=== PATIENT | male | born 1985 | race Native Hawaiian/Other Pacific Islander ===

== ENCOUNTER 2021-03-13 15:54 | Emergency (ER) | payer OTHER, MEDICAID, SELFPAY ==
--- NOTE | 2021-03-13 13:29 | DI.RAD.S_ITS ---
PROCEDURE: XR FINGER RT MIN 2V INDICATIONS: thumb vs table saw TECHNIQUE: AP hand, 2 views of the 1st finger(s) acquired. COMPARISON: None. FINDINGS: Bones: Acute oblique fracture through 1st distal phalangeal tuft is seen with minimal volar and distal displacement at fracture site. No suspicious bony lesions. Soft tissues: Laceration involving tip of the right thumb is seen. Small radiodensities within tip of right thumb soft tissue are seen, which may represent tiny foreign bodies. IMPRESSION: Oblique fracture through 1st distal phalangeal tuft. Laceration involving tip of right thumb with suggestion of tiny foreign bodies within soft tissue. Dictated by: Aditya Martines M.D. on 03/13/2021 at 13:52 Approved by: Aditya Martines M.D. on 03/13/2021 at 14:10
--- NOTE | 2021-03-13 19:15 | ED_ITS ---
HPI - Extremity Injury (Upper) General Chief Complaint: Wound/Laceration Stated Complaint: RT THUMB INJURY History of Present Illness HPI narrative: Discharge is created we has there was in EMR error and name probablem patient was seen and evaluated at 13:23 p.m. Patient is a 35-year-old male presents with right thumb injury.? He injured it 45 minutes prior to her arrival with a table saw.? He has no numbness or tingling.? He is not on any anti-platelet or anticoagulation medication.? He still has full range motion.? Right hand dominant.? Injury happened at home. Related Data Previous Rx's Medication Instructions Recorded cyclobenzaprine 10 mg tablet 10 mg PO BID #20 tab 09/12/19 Allergies Allergy/AdvReac Type Severity Reaction Status Date / Time No Known Drug Allergies Allergy Verified 09/12/19 09:40 Review of Systems Review of Systems Narrative: Narrative: GENERAL: Denies chills,fever HEENT: Denies throat pain RESPIRATORY: Denies dyspnea, cough, wheezing CARDIOVASCULAR: Denies chest pain, palpitations GASTROINTESTINAL: Denies nausea, vomiting MUSCULOSKELETAL: Denies extremity pain, injury SKIN:? See HPI NEUROLOGIC: Denies weakness, dizziness, headache, numbness 8 point review of systems is negative except for those stated above and HPI Patient History Medical History (Updated 03/13/21 @ 16:11 by Pamela Prado RN) Sciatica Exam Initial Vital Signs Initial Vital Signs: Temperature ?98.3 F ?03/13/21 13:15 Pulse Rate ?93 H ?03/13/21 13:15 Respiratory Rate ?22 ?03/13/21 13:15 Blood Pressure ?174/83 H ?03/13/21 13:15 Pulse Oximetry ?98 ?03/13/21 13:15 GENERAL: Well-appearing, well-nourished and in no acute distress. CARDIOVASCULAR: peripheral pulses in tact, cap refill <2 sec RESPIRATORY: No respiratory distress,? speaks in full sentences without difficulty [ABDOMEN: Soft, nontender, no guarding or rebound] EXTREMITIES: Normal range of motion, no clubbing or edema.? Neurovascularly intact NEUROLOGICAL: Cranial nerves II through XII grossly intact.? Normal gait and speech. SKIN:? Right thumb laceration across distal palmar side is no nail bed involvement actually 4cm jagged laceration Procedures Laceration Repair Laceration 1: Site: hand (thumb) Size (cm): 4 Description: stellate and irregular Local Anesthetic: lidocaine 1% (2) Pre-repair: wound explored, irrigated extensively, deep structures intact and extensive debridement Skin layer closed with: nylon Size (cm): 4-0 Number of sutures: 3 Course Orders Ordered: 03/13/21 13:28 XR finger RT min 2V Stat Discontinued Medications Lidocaine HCl (Lidocaine 1% (Pf))? 4 ml SUBCUT NOW ONE ??? Stop: 03/13/21 13:35 ??? Last Admin: 03/13/21 13:39? Dose: 4 ml ??? Documented by: WILLIAMS Vital Signs Vital signs: ? 03/13/21 13:15 Temperature 98.3 F Pulse Rate 93 H Respiratory Rate 22 Blood Pressure 174/83 H Pulse Oximetry 98 [facility] [place] - Extremity Injury (Upper) Imaging Data Extremity x-ray #1: Radiologist's Impression: PROCEDURE:? XR FINGER RT MIN 2V ? INDICATIONS:? thumb vs table saw ? TECHNIQUE:? AP hand, 2 views of the 1st finger(s) acquired.? ? COMPARISON:? None. ? FINDINGS:? ? Bones:? Acute oblique fracture through 1st distal phalangeal tuft is seen with minimal volar and distal displacement at fracture site.? No suspicious bony lesions.? ? Soft tissues:? Laceration involving tip of the right thumb is seen.? Small radiodensities within tip of right thumb soft tissue are seen, which may represent tiny foreign bodies. ? IMPRESSION:? Oblique fracture through 1st distal phalangeal tuft.? Laceration involving tip of right thumb with suggestion of tiny foreign bodies within soft tissue. ? ? Dictated by: Aditya Martines M.D. on 03/13/2021 at 13:52 ? ? Approved by: Aditya Martines M.D. on 03/13/2021 at 14:10 ? [facility] Narrative Medical decision making narrative: Patient had no real good way to suture. However deep structures appear to be intact. He has a tuft fracture on distal thumb. He is placed in a splint given a good dressing and recommended he follow-up with orthopedics. Orthopedics agreed with this plan. He was started on antibiotics, Keflex and given pain medications, Rachel Humphrey consultation. Again this patient was unfortunately put under overall patient name initially this is correct name and patient Discharge Plan Departure Patient Disposition: Home Clinical Impression: Laceration Instructions: DI for Laceration Repair Prescriptions: No Action cyclobenzaprine 10 mg tablet 10 mg PO BID Qty: 20 RF: 0
== END 2021-03-13 16:11 | disposition home or self-care (01) ==
PROVIDERS: Emergency Provider Emergency Medicine
DX: S61.011A Laceration without foreign body of right thumb without damage to nail, initial encounter (principal); W27.0XXA Contact with workbench tool, initial encounter
CPT/HCPCS: 12002; 73140; 99283

== ENCOUNTER 2025-01-08 09:38 | Observation (INO) | payer OTHER, SELFPAY ==
[2025-01-08] VITALS (17 sets, daily range): BP systolic 115–173; BP diastolic 59–95; PULSE 83–113; RESP 12–23; TEMP 36.4–36.8; O2SAT 96–100; BMI 51.7; BMI 54.8
[2025-01-08 10:42] LABS: INR 1.2 (0.9-1.3); Prothrombin Time 14.0 SECONDS (9.4-12.5)
[2025-01-08 10:43] LABS: Add Manual Diff / Slide Review NO; Hematocrit 29.8 % (41-53); Hemoglobin 10.1 g/dL (13.5-17.5); Lymphocytes Absolute Auto 2700 /uL (1100-4500); Mean Corpuscular HGB Conc 34.0 % (30-36); Mean Corpuscular Hemoglobin 27.5 PG (26-34); Mean Corpuscular Volume 80.8 fL (80-100); Platelet Count 281 X10^3/uL (150-400)
[2025-01-08 10:45] LABS: PTT Partial Thromboplastin Tim 25 SECONDS (25.1-36.5)
[2025-01-08 10:51] LABS: Alanine Aminotransferase 65 IU/L (<50); Albumin 4.1 g/dL (3.5-5.0); Albumin Globulin Ratio 1.6 (1.0-2.8); Alkaline Phosphatase 64 U/L (38-126); Blood Urea Nitrogen 35 mg/dL (9-20); Calcium 9.9 mg/dL (8.4-10.2); Carbon Dioxide 22 mmol/L (22-32); Chloride 102 mmol/L (98-107); Estimated Glomerular Filt Rate > 60 mL/min (>60); Globulin 2.6 g/dL (1.7-4.1); Glucose 129 mg/dL (70-99); HEMOLYSIS < 15 (0-50); Potassium 4.7 mmol/L (3.4-5.1); Sodium 132 mmol/L (137-145); Total Protein 6.7 g/dL (6.3-8.2)
--- NOTE | 2025-01-08 11:30 | DI.RAD.S_ITS ---
PROCEDURE: XR CHEST 1V INDICATIONS: suspected sepsis TECHNIQUE: One view of the chest was acquired. COMPARISON: [facility], CT, CT ANGIO ABDOMEN PELVIS, 01/08/2025, 11:49. FINDINGS: Surgical changes and devices: None. Lungs and pleura: Lungs are clear. No pleural effusions or pneumothorax. Mediastinum: Mediastinal contours appear normal. Heart size is normal. Bones and chest wall: No suspicious bony lesions. Overlying soft tissues appear unremarkable. IMPRESSION: No focal infiltrates are seen. No acute cardiopulmonary abnormality is seen. Dictated by: Andrés Justice M.D. on 01/08/2025 at 11:29 Approved by: Andrés Justice M.D. on 01/08/2025 at 11:29
--- NOTE | 2025-01-08 11:34 | ED_ITS ---
HPI - GI Bleed General Chief complaint: GI Bleed Stated complaint: Poss bleeding ulcer 2days; black stool;acid reflux Time Seen by Provider: 01/08/25 11:31 Source: patient Mode of arrival: Ambulatory History of Present Illness HPI Narrative: Mr. Sanders is a pleasant 39-year-old male with a past medical history of obesity, suspected gastric ulcer presents to the emergency department with his mom for nausea, acid reflux, and black stools x3 days. Patient denies a known history of gastric ulcer but does suspect he could have had 1 in the past. He has never had an endoscopy or colonoscopy. He does not use NSAIDs. No blood thinenrs. Reports about 3 days ago he started experiencing some nausea and nonfocal abdominal pain/acid reflux and has had black stools since then. Stool is formed, but is somewhat tarry and is pitch black in color. He did take Tums which made him have slight diarrhea. Reports feeling feverish yesterday as well. On the 1st day he did notice a scant amount of bright red blood in the stool but since then only black. No vomiting. Denies chest pain, shortness of breath, dysuria, hematuria, flank pain, focal abdominal pain, history of any abdominal surgeries. He has not had any food since last night and has only had sips of water today. Quit smoking about 6 months ago, occasional THC use, very infrequent alcohol use, no other drug use. He does not take any daily prescriptions however 9 days ago he did start taking Tesofensine which is a medication he found online to help with appetite suppressant/weight loss. Related Data Previous Rx's ?Medication ?Instructions ?Recorded cyclobenzaprine 10 mg tablet 10 mg PO BID #20 tabs 11/25 Allergies Allergy/AdvReac Type Severity Reaction Status Date / Time No Known Drug Allergies Allergy Verified 01/08/25 09:58 Review of Systems Review of Systems ROS Unobtainable: All systems reviewed & are unremarkable except as noted in HPI and below Patient History Medical History Sciatica Social History Smoking Status: Former smoker Smoking Status: Former smoker Exam Narrative Exam Narrative: GENERAL: 39 year old patient appears stated age. Obese patient, in no acute distress. HEAD: Atraumatic. Normocephalic. EYES: No scleral icterus. No injection or drainage. ENT: Nose without bleeding, purulent drainage. Throat without erythema, tonsillar hypertrophy or exudate. Airway patent. NECK: Trachea midline. Cervical ROM intact. CARDIOVASCULAR: Regular rate and rhythm. RESPIRATORY: ?Nonlabored respirations. ?Speaking in clear, full sentences. ?Clear to auscultation. Breath sounds equal bilaterally. No wheezes, rales, or rhonchi. ? GASTROINTESTINAL: Abdomen soft, non-tender, nondistended. BS present. Patient gave verbal consent for rectal exam, rectal exam did reveal black stool, no bright red blood. EXTREMITIES: No edema or joint tenderness. BACK: No CVA tenderness NEURO: AOx3. ?Clear speech. ?Moves all 4 extremities appropriately. SKIN: No rash or erythema of visible areas Initial Vital Signs Initial Vital Signs: Vital Signs Pulse Rate 96 H 01/08/25 09:58 Respiratory Rate 20 01/08/25 09:58 Blood Pressure 161/75 H 01/08/25 09:58 Pulse Oximetry 100 01/08/25 09:58 Oxygen Delivery Method Room Air 01/08/25 09:58 Course Orders Ordered: ED Orders 01/08/25 10:23 Complete Blood Count AUTO DIFF Stat Comprehensive Metabolic Panel Stat PTT Partial Thromboplastin Taras Stat Prothrombin Time INR Stat Type and Screen Stat 01/08/25 11:20 Ictotest Urine Stat 01/08/25 11:30 XR chest 1V Stat EKG-12 Lead Stat RT Consult Eval and Treat NOW 01/08/25 11:35 Comprehensive Metabolic Panel Stat Lactate (Lactic Acid) Stat Lipase Stat Procalcitonin Stat 01/08/25 11:45 CT angio abdomen pelvis Stat 01/08/25 11:48 Blood Culture Stat Al Hydrox/Mg Hydrox/Simethicone (Mag Hydrox/Alum/Simeth 30 Ml Udc) 30 ml PO ACHS HORTENCIA Lactated Ringer's (Lactated Ringers) 1,000 mls @ 100 mls/hr IV CONT HORTENCIA Ondansetron HCl (Ondansetron 4 Mg/2 Ml Inj) 4 mg IV NOW PRN PRN Reason: Nausea And Vomiting Ondansetron HCl (Ondansetron 4 Mg Odt) 4 mg PO NOW PRN PRN Reason: Nausea And Vomiting Pantoprazole Sodium (Pantoprazole 40 Mg Vial) 40 mg IV BID HORTENCIA Sucralfate (Sucralfate 1 Gm Tablet) 1 gm PO ACHS HORTENCIA Discontinued Medications Sodium Chloride (Normal Saline 0.9%) 1,000 mls @ 1,000 mls/hr IV BOLUS ONE Stop: 01/08/25 12:29 Last Admin: 01/08/25 11:44 Dose: 1,000 mls/hr Documented By: RB Ondansetron HCl (Ondansetron 4 Mg/2 Ml Inj) 4 mg IV NOW ONE Stop: 01/08/25 11:46 Last Admin: 01/08/25 13:12 Dose: 4 mg Documented By: RB Pantoprazole Sodium (Pantoprazole 40 Mg Vial) 40 mg IV NOW ONE Stop: 01/08/25 11:46 Last Admin: 01/08/25 13:12 Dose: 40 mg Documented By: RB Vital Signs Vital signs: Vital Signs - 8 hr 01/08/25 09:58 01/08/25 10:28 01/08/25 10:30 Pulse Rate 96 H 95 H 113 H Respiratory Rate 20 Blood Pressure 161/75 H Pulse Oximetry 100 98 99 Oxygen Delivery Method Room Air 01/08/25 10:32 01/08/25 10:32 01/08/25 10:43 Pulse Rate 97 H 97 H Respiratory Rate 15 20 Blood Pressure 136/85 Pulse Oximetry 98 98 Oxygen Delivery Method 01/08/25 10:43 01/08/25 11:00 01/08/25 11:00 Pulse Rate 90 Respiratory Rate 12 Blood Pressure 141/95 H 145/84 H Pulse Oximetry 96 Oxygen Delivery Method 01/08/25 11:21 01/08/25 11:21 01/08/25 11:30 Pulse Rate 106 H 95 H Respiratory Rate 22 18 Blood Pressure 173/82 H Pulse Oximetry 99 97 Oxygen Delivery Method 01/08/25 11:32 01/08/25 11:32 01/08/25 11:45 Pulse Rate 92 H 97 H Respiratory Rate 17 19 Blood Pressure 133/72 Pulse Oximetry 98 97 Oxygen Delivery Method 01/08/25 11:45 01/08/25 12:06 01/08/25 12:30 Pulse Rate 92 H 83 Respiratory Rate 23 Blood Pressure 140/78 Pulse Oximetry 98 96 Oxygen Delivery Method MDM - GI Bleed Medical Records Attestation: I reviewed the patient's medical records. Lab Data 01/08/25 10:23 01/08/25 11:35 Labs: Lab Results 01/08/25 01/08/25 01/08/25 Range/Units 10:23 11:20 11:35 WBC 17.1 H (4.5-11.0) X10^3/uL RBC 3.68 L (4.5-5.9) X10^6/uL Hgb 10.1 L (13.5-17.5) g/dL Hct 29.8 L (41-53) % MCV 80.8 (80-100) fL MCH 27.5 (26-34) PG MCHC 34.0 (30-36) % RDW 14.2 (11.6-14.8) % Plt Count 281 (150-400) X10^3/uL Neut % (Auto) 77.2 H (50-75) % Lymph % (Auto) 15.7 L (25-40) % [place] % (Auto) 5.6 (3-14) % Eos % (Auto) 0.8 L (2-4) % Baso % (Auto) 0.7 (0-2) % Neut # (Auto) 09682 H (8409-0775) /uL Lymph # (Auto) 2700 (3108-9733) /uL [place] # (Auto) 1000 H (0-900) /uL Eos # (Auto) 100 (0-450) /uL Baso # (Auto) 100 (0-100) /uL PT 14.0 H (9.4-12.5) SECONDS INR 1.2 (0.9-1.3) APTT 25 L (25.1-36.5) SECONDS Sodium 132 L 132 L (137-145) mmol/L Potassium 4.7 4.6 (3.4-5.1) mmol/L Chloride 102 103 (98-107) mmol/L Carbon Dioxide 22 22 (22-32) mmol/L BUN 35 H 33 H (9-20) mg/dL Creatinine 0.84 0.79 (0.66-1.25) mg/dL Estimated GFR > 60 > 60 (>60) mL/min BUN/Creatinine Ratio 41.7 H 41.8 H (6-22) Glucose 129 H 120 H (70-99) mg/dL Lactate 1.1 (0.7-2.1) mmol/L Calcium 9.9 10.1 (8.4-10.2) mg/dL Total Bilirubin 0.3 0.3 (0.2-1.3) mg/dL AST 44 45 (17-59) IU/L ALT 65 H 63 H (<50) IU/L Alkaline Phosphatase 64 61 (38-126) U/L Total Protein 6.7 6.7 (6.3-8.2) g/dL Albumin 4.1 4.1 (3.5-5.0) g/dL Globulin 2.6 2.6 (1.7-4.1) g/dL Albumin/Globulin Ratio 1.6 1.6 (1.0-2.8) Lipase 44 (23-300) U/L Procalcitonin 0.108 (<0.5) ng/mL Ur Bilirubin Confirm Negative (Negative) Blood Type O Positive Antibody Screen Negative Point of Care Testing Stool Occult Blood Positive Urine Dip Bedside Urine Glucose Negative Bedside Urine Bilirubin + 1 Bedside Urine Ketone - Negative Urine Specific [place] 1.015 Bedside Urine Occult Blood - Negative Bedside Urine pH 6.0 Bedside Urine Protein - Negative Bedside Urine Urobilinogen 0.2 Bedside Urine Nitrite - Negative Bedside Urine Leukocytes - Negative Esterase Imaging Data Chest x-ray: Radiologist's Impression: PROCEDURE: XR CHEST 1V INDICATIONS: suspected sepsis TECHNIQUE: One view of the chest was acquired. COMPARISON: [facility], CT, CT ANGIO ABDOMEN PELVIS, 01/08/2025, 11:49. FINDINGS: Surgical changes and devices: None. Lungs and pleura: Lungs are clear. No pleural effusions or pneumothorax. Mediastinum: Mediastinal contours appear normal. Heart size is normal. Bones and chest wall: No suspicious bony lesions. Overlying soft tissues appear unremarkable. IMPRESSION: No focal infiltrates are seen. No acute cardiopulmonary abnormality is seen. Dictated by: Andrés Justice M.D. on 01/08/2025 at 11:29 Approved by: Andrés Justice M.D. on 01/08/2025 at 11:29 CTA Ab/Pelvis: Radiologist's Impression: PROCEDURE: CT ANGIO ABDOMEN PELVIS INDICATIONS: GI bleed; melena, nausea, WBC 17+ TECHNIQUE: Precontrast images were acquired. After the administration of intravenous contrast, 2.5 mm thick sections acquired from the diaphragm to the symphysis. Arterial and venous phase images were acquired. 10 mm maximum-intensity projection (MIP) reformats were then acquired. For radiation dose reduction, the following was used: automated exposure control. COMPARISON: None. FINDINGS: Image Quality: This study is limited by body habitus. Abdominal aorta: No aortic aneurysm or evidence of acute aortic syndrome. Mesenteric arteries: Patent without hemodynamically significant stenosis. Renal arteries: Patent without hemodynamically significant stenosis. OTHER: Lower Chest: No significant findings. Liver: No solid mass. Diffuse fatty liver infiltration is noted. Gallbladder: No radiopaque gallstones or wall thickening. Biliary ducts: No biliary dilation. Pancreas: No ductal dilation. Spleen: Size is within normal limits. Adrenal Glands: No adrenal nodules. Kidneys and Ureters: No hydronephrosis. No solid mass. No complex renal cystic lesion which requires follow up. Stomach and Bowel: No findings of active extravasation can be seen on the arterial phase imaging. Normal colonic caliber, without significant wall thickening. The colon is decompressed. No dilated loops of small bowel are seen. A normal appendix is noted. Peritoneum: No abnormal intraperitoneal fluid. No free air. Ventral Wall: No hernia. Abdominal Nodes: No retroperitoneal or mesenteric adenopathy by size criteria. Vessels: Aorta and inferior vena cava are normal in size. PELVIS: Pelvic Organs: Unremarkable. Bladder: Unremarkable. Pelvic Nodes: No enlarged lymph nodes. Miscellaneous: No inguinal hernias are seen. Bones: No aggressive osseous abnormality. There is a remote T12 anterior wedge deformity. Generalized degenerative changes are seen, which are more prominent than would be expected for age. IMPRESSION: No imaging explanation is found for this patient's presenting symptoms. No site of bleeding is identified. Normal appendix. No dilated loops of small bowel. Additional findings: Remote T12 anterior wedge deformity Fatty liver infiltration Dictated by: Andrés Justice M.D. on 01/08/2025 at 11:18 Approved by: Andrés Justice M.D. on 01/08/2025 at 11:21 MDM Narrative Medical decision making narrative: 39-year-old male with a past medical history of obesity, suspected gastric ulcer presents to the emergency department with his mom for nausea and black stools x3 days. Differential diagnosis includes but is not limited to GI bleed, upper GI bleed, gastric ulcer, perforated ulcer, colitis, electrolyte abnormality, anemia, etc. On exam patient is in no acute distress, nontoxic appearing, his heart rate is elevated in the upper 90s, abdomen exam is relatively benign, rectal exam does reveal melena. He is obese. Labs initiated in triage revealing elevated WBC count 17.1, anemia with hemoglobin of 10.1, hematocrit 29.8, platelets 281. Spoke with surgeon in the ED at this time, CTA abdomen and pelvis ordered in addition to IV fluids, Protonix, Zofran. FoBi positive. Labs reveal elevated WBC count 17.1, blood cultures were obtained. Hemoglobin 10.1 hematocrit 29.8. Platelets appropriate to 81. PT slightly prolonged at 14.0. Sodium 132, potassium 4.6, BUN 33, creatinine 0.79. Glucose 120. AST 45, ALT 63. Lipase normal 44. Procalcitonin 0.108. Lactate normal 1.1. Chest x-ray negative. Abdomen pelvis negative, no imaging explanation found for the patient's presenting symptoms. No site of bleeding. Normal appendix. No dilated small loops of bowel. 1245: Discussed case with both general surgeon, Dr. Powers and hospitlaist, Dr. Baron in the ED. Plan to admit patient to medicine for upper GI bleed, general surgery will consult, plan for scope tomorrow. Surgeon reviewed imaging, appears to be some gastritis. Patient is hemodynamically stable for transfer to the floor. Discharge Plan Departure Patient Disposition: Admitted as Observation Clinical Impression: GI bleed Qualifiers: GI bleed type/associated pathology: melena Qualified Code(s): K92.1 - Melena Admit Date/Time: 01/08/25 12:42 Admit Provider: Bret Baron V
[2025-01-08] MEDS: SODIUM CHLORIDE 0.9% 1,000 ML 1000 ML IV (11:44)
--- NOTE | 2025-01-08 11:45 | DI.CT.S_ITS ---
PROCEDURE: CT ANGIO ABDOMEN PELVIS INDICATIONS: GI bleed; melena, nausea, WBC 17+ TECHNIQUE: Precontrast images were acquired. After the administration of intravenous contrast, 2.5 mm thick sections acquired from the diaphragm to the symphysis. Arterial and venous phase images were acquired. 10 mm maximum-intensity projection (MIP) reformats were then acquired. For radiation dose reduction, the following was used: automated exposure control. COMPARISON: None. FINDINGS: Image Quality: This study is limited by body habitus. Abdominal aorta: No aortic aneurysm or evidence of acute aortic syndrome. Mesenteric arteries: Patent without hemodynamically significant stenosis. Renal arteries: Patent without hemodynamically significant stenosis. OTHER: Lower Chest: No significant findings. Liver: No solid mass. Diffuse fatty liver infiltration is noted. Gallbladder: No radiopaque gallstones or wall thickening. Biliary ducts: No biliary dilation. Pancreas: No ductal dilation. Spleen: Size is within normal limits. Adrenal Glands: No adrenal nodules. Kidneys and Ureters: No hydronephrosis. No solid mass. No complex renal cystic lesion which requires follow up. Stomach and Bowel: No findings of active extravasation can be seen on the arterial phase imaging. Normal colonic caliber, without significant wall thickening. The colon is decompressed. No dilated loops of small bowel are seen. A normal appendix is noted. Peritoneum: No abnormal intraperitoneal fluid. No free air. Ventral Wall: No hernia. Abdominal Nodes: No retroperitoneal or mesenteric adenopathy by size criteria. Vessels: Aorta and inferior vena cava are normal in size. PELVIS: Pelvic Organs: Unremarkable. Bladder: Unremarkable. Pelvic Nodes: No enlarged lymph nodes. Miscellaneous: No inguinal hernias are seen. Bones: No aggressive osseous abnormality. There is a remote T12 anterior wedge deformity. Generalized degenerative changes are seen, which are more prominent than would be expected for age. IMPRESSION: No imaging explanation is found for this patient's presenting symptoms. No site of bleeding is identified. Normal appendix. No dilated loops of small bowel. Additional findings: Remote T12 anterior wedge deformity Fatty liver infiltration Dictated by: Andrés Justice M.D. on 01/08/2025 at 11:18 Approved by: Andrés Justice M.D. on 01/08/2025 at 11:21
[2025-01-08 11:59] LABS: Ictotest Urine Negative (Negative)
[2025-01-08 12:10] LABS: Alanine Aminotransferase 63 IU/L (<50); Albumin 4.1 g/dL (3.5-5.0); Albumin Globulin Ratio 1.6 (1.0-2.8); Alkaline Phosphatase 61 U/L (38-126); Blood Urea Nitrogen 33 mg/dL (9-20); Calcium 10.1 mg/dL (8.4-10.2); Carbon Dioxide 22 mmol/L (22-32); Chloride 103 mmol/L (98-107); Estimated Glomerular Filt Rate > 60 mL/min (>60); Globulin 2.6 g/dL (1.7-4.1); Glucose 120 mg/dL (70-99); HEMOLYSIS < 15 (0-50); Lactate (Lactic Acid) 1.1 mmol/L (0.7-2.1); Lipase 44 U/L (23-300); Potassium 4.6 mmol/L (3.4-5.1); Sodium 132 mmol/L (137-145); Total Protein 6.7 g/dL (6.3-8.2)
[2025-01-08 12:26] LABS: Procalcitonin 0.108 ng/mL (<0.5)
--- NOTE | 2025-01-08 13:03 | PM.HP.IH.1 ---
History of Present Illness History of Present Illness Date Patient Seen: 01/08/25 Time Patient Seen: 01:00 Date of Onset of Symptoms: 01/06/25 Chief complaint: Poss bleeding ulcer 2days; black stool;acid reflux Narrative: Patient is a 39-year-old ugandan male who presents to the emergency room with black melanotic stools x3 days. Patient states this started on 01/06/2025 was having black stools on 8 08/2024 was having a shower when he became slightly vertiginous. No syncope admits to nausea but denies any vomiting he has had some bad reflux. Patient last ate a water prior to coming the ER and will have his drinking water here in the ER. Patient denies any abdominal pain. Patient states that he is taking as ins tobacco products ongoing marijuana but also is taking a new appetite reduction drug use gotten online which she has been taking for 7 days and taking Tums. Patient's admitting laboratory shows WBC of 17.1 hemoglobin is 10.1 hematocrit is 29.8 platelets are 281,000 sodium is 132 potassium is 4.6 chloride 103 bicarb is 22 BUN of 33 creatinine 0.79 random blood sugars 120 PT is 14.0 PTT is 25 total bilirubin 0.3 AST is 45 ALT is 63 alkaline phosphatase is [address] scan which shows no signs of bleeding with IV contrast no acute processes noted radiology report is still pending. I was asked to see the patient for evaluation of the upper GI bleeding. We will consult hospitalist. Allergies: NKDA Medications: Tums and a online weight reduction medication Past medical history: Obesity, history of fracture of left arm falling from a tree, fracture of his back secondary to fall from a tree. Patient denies any other heart lungs digestive musculoskeletal neurological seizure disorder psychiatric problems risks are infectious diseases HIV or AIDS. Past surgical history: Unremarkable no history of screening scopes Social history: History tobacco abuse 1 pack per day x4 years. Six months ago has been taking Xeljanz for 6 months zinns tobacco pouches, denies any alcohol usage, ongoing marijuana use region. Vitals: Pulse is 92 respirations 17 BP is 133/72 SaO2 is 98% on room air patient is 5 ft 9 350 lb Head is normocephalic eyes PERRLA EOMI is intact nares are clear septum midline EACs and pinnae are unremarkable oropharyngeal cavity is in moderate repair heart regular rate and rhythm without murmurs lungs are clear to auscultation no rales rhonchi or wheezes noted moderate inspiratory and expiratory effort moderate chest wall motion noted. Abdomen was obese with good active bowel sounds negative Nacho's Grubbs great turns Torres's McBurney's no masses or peritoneal signs were elicited musculoskeletal good muscle tone and strength equal bilaterally no gross deficits elicited. Impression: Black melanotic stools of 3 days' duration with acute blood loss anemia Hemoglobin 10.1 hematocrit is 29.8 Obesity Tobacco and marijuana usage Plan: Discussed with patient and mother the findings need for admission for management of upper GI bleeding and monitoring H&H. Discussed the need for EGD with MAC procedure risks and complications were fully explained including risk for cardiopulmonary depression infection bleeding bowel injury patient understands and consents we will NPO at midnight place on H2 blockers antacids and Carafate all questions were answered with the patient and mother's satisfaction. [facility] Medical History Sciatica Social History Smoking Status: Former smoker Meds Home Medications and Allergies Home Medications ?Medication ?Instructions ?Recorded ?Confirmed ?Type cyclobenzaprine 10 mg tablet 10 mg PO BID #20 tabs 09/12/19 09/12/19 Rx Allergies Allergy/AdvReac Type Severity Reaction Status Date / Time No Known Drug Allergies Allergy Verified 01/08/25 09:58 Exam Vital Signs (past 8 hours): - 01/08/25 09:58 01/08/25 10:28 01/08/25 10:30 Pulse Rate 96 H 95 H 113 H Respiratory Rate 20 Blood Pressure 161/75 H Pulse Oximetry 100 98 99 Oxygen Delivery Method Room Air 01/08/25 10:32 01/08/25 10:32 01/08/25 10:43 Pulse Rate 97 H 97 H Respiratory Rate 15 20 Blood Pressure 136/85 Pulse Oximetry 98 98 Oxygen Delivery Method 01/08/25 10:43 01/08/25 11:00 01/08/25 11:00 Pulse Rate 90 Respiratory Rate 12 Blood Pressure 141/95 H 145/84 H Pulse Oximetry 96 Oxygen Delivery Method 01/08/25 11:21 01/08/25 11:21 01/08/25 11:30 Pulse Rate 106 H 95 H Respiratory Rate 22 18 Blood Pressure 173/82 H Pulse Oximetry 99 97 Oxygen Delivery Method 01/08/25 11:32 01/08/25 11:32 Pulse Rate 92 H Respiratory Rate 17 Blood Pressure 133/72 Pulse Oximetry 98 Oxygen Delivery Method Oxygen Delivery Method Room Air Objective Labs 01/08/25 10:23 01/08/25 11:35 Labs: Laboratory Results - last 24 hr 01/08/25 01/08/25 01/08/25 10:23 11:20 11:35 WBC 17.1 H RBC 3.68 L Hgb 10.1 L Hct 29.8 L MCV 80.8 MCH 27.5 MCHC 34.0 RDW 14.2 Plt Count 281 Neut % (Auto) 77.2 H Lymph % (Auto) 15.7 L [place] % (Auto) 5.6 Eos % (Auto) 0.8 L Baso % (Auto) 0.7 Neut # (Auto) 04322 H Lymph # (Auto) 2700 [place] # (Auto) 1000 H Eos # (Auto) 100 Baso # (Auto) 100 PT 14.0 H INR 1.2 APTT 25 L Sodium 132 L 132 L Potassium 4.7 4.6 Chloride 102 103 Carbon Dioxide 22 22 BUN 35 H 33 H Creatinine 0.84 0.79 Estimated GFR > 60 > 60 BUN/Creatinine Ratio 41.7 H 41.8 H Glucose 129 H 120 H Lactate 1.1 Calcium 9.9 10.1 Total Bilirubin 0.3 0.3 AST 44 45 ALT 65 H 63 H Alkaline Phosphatase 64 61 Total Protein 6.7 6.7 Albumin 4.1 4.1 Globulin 2.6 2.6 Albumin/Globulin Ratio 1.6 1.6 Lipase 44 Procalcitonin 0.108 Ur Bilirubin Confirm Negative Blood Type O Positive Antibody Screen Negative Assessment & Plan Time-Based Coding :: [TOTAL MINUTES] spent with patient and on the chart (including review of chart, obtaining history, exam, reviewing outside data, placing orders, documenting exam and treatment plan, and counseling patient) on [DATE]. PROFEE Ocean Import Representative Document charge(s): Yes
[2025-01-08] MEDS: ONDANSETRON 4 MG/2 ML INJ IV (13:12)
[2025-01-08] MEDS: PANTOPRAZOLE 40 MG VIAL IV ×2 (13:12→20:08)
--- NOTE | 2025-01-08 14:08 | P.HP_ITS ---
History of Present Illness History of Present Illness Date Patient Seen: 01/08/25 Time Patient Seen: 12:40 Chief complaint: Poss bleeding ulcer 2days; black stool;acid reflux Narrative: 39-year-old man with no health issues other than significant obesity, having started a weight loss medicine called tesofensine (MAOI inhibitor) 10 days ago that he obtained online, started to feel ill with abdominal discomfort and cramping 2 days ago with black tarry stools and nausea. He has had no vomiting, hematemesis or hematochezia, and denies aspirin or NSAID use. He has a history of arm and back fractures due to falling out of trees in the remote past though otherwise denies medical problems. He is of [place] extraction and has had long-term obesity. He quit smoking a year ago after smoking a pack of cigarettes daily for many years, and continues on oral nicotine pouches. He denies alcohol use. He has a history of marijuana use though none recently. Interview is conducted with Dr. Powers at bedside, and plan for admission for observation with endoscopy tomorrow is discussed and agreed upon, with the patient agreeable to this plan of care. [facility], [facility] Medical History Sciatica Social History Smoking Status: Former smoker Meds Home Medications and Allergies Home Medications ?Medication ?Instructions ?Recorded ?Confirmed ?Type cyclobenzaprine 10 mg tablet 10 mg PO BID #20 tabs 11/2509/12/19 Rx Allergies Allergy/AdvReac Type Severity Reaction Status Date / Time No Known Drug Allergies Allergy Verified 01/08/25 09:58 Review of Systems Review of Systems ROS: Yes All systems reviewed with the patient and are negative except as otherwise documented Exam Vital Signs (past 8 hours): - 01/08/25 09:58 01/08/25 10:28 01/08/25 10:30 Pulse Rate 96 H 95 H 113 H Respiratory Rate 20 Blood Pressure 161/75 H Pulse Oximetry 100 98 99 Oxygen Delivery Method Room Air 01/08/25 10:32 01/08/25 10:32 01/08/25 10:43 Pulse Rate 97 H 97 H Respiratory Rate 15 20 Blood Pressure 136/85 Pulse Oximetry 98 98 Oxygen Delivery Method 01/08/25 10:43 01/08/25 11:00 01/08/25 11:00 Pulse Rate 90 Respiratory Rate 12 Blood Pressure 141/95 H 145/84 H Pulse Oximetry 96 Oxygen Delivery Method 01/08/25 11:21 01/08/25 11:21 01/08/25 11:30 Pulse Rate 106 H 95 H Respiratory Rate 22 18 Blood Pressure 173/82 H Pulse Oximetry 99 97 Oxygen Delivery Method 01/08/25 11:32 01/08/25 11:32 01/08/25 11:45 Pulse Rate 92 H 97 H Respiratory Rate 17 19 Blood Pressure 133/72 Pulse Oximetry 98 97 Oxygen Delivery Method 01/08/25 11:45 01/08/25 12:06 01/08/25 12:30 Pulse Rate 92 H 83 Respiratory Rate 23 Blood Pressure 140/78 Pulse Oximetry 98 96 Oxygen Delivery Method 01/08/25 13:00 01/08/25 13:30 Pulse Rate 96 H 97 H Respiratory Rate 21 17 Blood Pressure Pulse Oximetry 99 97 Oxygen Delivery Method Oxygen Delivery Method Room Air Narrative Exam Narrative: GENERAL: This is a very pleasant well-nourished, well-developed obese male patient, in no apparent distress. HEAD: Atraumatic. Normocephalic. No temporal or scalp tenderness. EYES: Pupils equal round and reactive. Extraocular motions intact. No scleral icterus. No injection or drainage. ENT: Mucous membranes pink and moist. NECK: Trachea midline. No JVD, bruits or lymphadenopathy. Supple, nontender, no meningeal signs. CARDIOVASCULAR: Regular rate and rhythm without murmurs, gallops, or rubs. RESPIRATORY: Clear to auscultation. GASTROINTESTINAL: Abdomen soft, non-tender, nondistended. EXTREMITIES: No clubbing, cyanosis, or edema. BACK: Nontender without deformity or crepitance. No flank tenderness. NEUROLOGIC: Alert, oriented, speech fluent, full upper and lower motor strength, no focal deficits evident. DERMATOLOGIC: No rashes or skin lesions. Objective Imaging Abdomen/pelvis CTA 01/08/2025:: Radiologist's impression: No imaging explanation is found for this patient's presenting symptoms. No site of bleeding is identified. Normal appendix. No dilated loops of small bowel. Additional findings: Remote T12 anterior wedge deformity Fatty liver infiltration Chest x-ray 01/08/2025:: Radiologist's impression: No focal infiltrates are seen. No acute cardiopulmonary abnormality is seen. Labs 01/08/25 10:23 01/08/25 11:35 Labs: Laboratory Results - last 24 hr 01/08/25 01/08/25 01/08/25 10:23 11:20 11:35 WBC 17.1 H RBC 3.68 L Hgb 10.1 L Hct 29.8 L MCV 80.8 MCH 27.5 MCHC 34.0 RDW 14.2 Plt Count 281 Neut % (Auto) 77.2 H Lymph % (Auto) 15.7 L [place] % (Auto) 5.6 Eos % (Auto) 0.8 L Baso % (Auto) 0.7 Neut # (Auto) 22305 H Lymph # (Auto) 2700 [place] # (Auto) 1000 H Eos # (Auto) 100 Baso # (Auto) 100 PT 14.0 H INR 1.2 APTT 25 L Sodium 132 L 132 L Potassium 4.7 4.6 Chloride 102 103 Carbon Dioxide 22 22 BUN 35 H 33 H Creatinine 0.84 0.79 Estimated GFR > 60 > 60 BUN/Creatinine Ratio 41.7 H 41.8 H Glucose 129 H 120 H Lactate 1.1 Calcium 9.9 10.1 Total Bilirubin 0.3 0.3 AST 44 45 ALT 65 H 63 H Alkaline Phosphatase 64 61 Total Protein 6.7 6.7 Albumin 4.1 4.1 Globulin 2.6 2.6 Albumin/Globulin Ratio 1.6 1.6 Lipase 44 Procalcitonin 0.108 Ur Bilirubin Confirm Negative Blood Type O Positive Antibody Screen Negative Assessment & Plan Assessment & Plan narrative: 1. Melena, likely upper GI bleed source. He notes a history of possible ulcers in the remote past [place]. 2. Acute blood loss anemia due to 1. 3. Obesity, on weight loss medication. This medication is not associated with gastrointestinal bleeding. Plan: - admit to observation - serial hematocrits - surgery consultation for endoscopy DVT prophylaxis: SCDs. Avoid anticoagulation. Code status: Full code. His mother is his surrogate decision maker. Quality MIPS - Admit I confirm the patient?s Advance Care Plan is present, Code status is documented, Surrogate decision maker is in patient?s record [If Yes, STOP here]: Yes MIPS - Meds 'Current medications' to include all prescriptions, [id number] products, herbals, cannabis/cannabidiol products, and vitamin/mineral/dietary (nutritional) supplements. I have utilized all available resources to obtain, update, or review the patient?s current medications. [If Yes, STOP here]: Yes IH PROFEE Economic Forecaster Document charge(s): No Charge Codes Initial inpatient/observation care: [id number]
[2025-01-08] MEDS: LACTATED RINGERS 1,000 ML 100 ML IV (14:11)
[2025-01-08 16:40] LABS: Hematocrit 27.3 % (41-53); Hemoglobin 9.2 g/dL (13.5-17.5)
[2025-01-08] MEDS: SUCRALFATE 1 GM TABLET PO ×2 (17:13→20:08)
[2025-01-08] MEDS: MAG HYDROX/ALUM/SIMETH 30 ML UDC PO ×2 (17:13→20:08)
[2025-01-09] VITALS (8 sets, daily range): BP systolic 100–128; BP diastolic 53–79; PULSE 76–89; RESP 13–25; TEMP 36.3–37.4; O2SAT 96–100
--- NOTE | 2025-01-09 | PATH_ITS ---
[facility] Accession Number: [id number] No. of containers..02 Tissue . 01 Material submitted: . PART A: duodenum - DUODENAL ULCERS X 3 PART B: stomach - STOMACH, ANTRUM . 01 Clinical history: . B) H.PYLORI . 01 Diagnosis: Part A: DUODENAL ULCERS X 3: Duodenal mucosa with ulcer. No evidence of celiac disease. No infectious organisms, dysplasia, or malignancy identified. . Part B: STOMACH, ANTRUM: Helicobacter pylori gastritis. No intestinal metaplasia, dysplasia, or malignancy identified. [facility] 01/17/20251527 Local . 01 Electronically signed: . Oziel Lozano MD, Pathologist NPI- [id number] . 01 Gross description: . A. Received in formalin, labeled with the patient's name, date of , and duodenal ulcers (x3) are three estrada-white friable soft tissue fragments ranging from minute to 0.2 cm in greatest dimension. Submitted in toto in cassette A1. Smaller two fragments may not survive processing. . B. Received in formalin, labeled with the patient's name, date of , and antrum/H. pylori is a single 0.6 cm, estrada-white, friable soft tissue fragment. Submitted in toto in cassette B1. (ALR:[id number]) /MRV 01/17/20251527 Local . 01 Microscopic: . Part B: ANTRUM: An immunohistochemical stain was performed, revealing the presence of Helicobacter organisms. The control stains appropriately. * This test was developed and the performance characteristics were validated by [facility]. It has not been cleared or approved by the Food and Drug Administration. . 01 Pathologist provided ICD-10: B96.81, K26.9 . 01 CPT . 078132, 765500, [id number] Specimen Comment: A courtesy copy of this report has been sent to [facility] Pathology Performed at: [address] [id number] MD Oziel Lozano MD Phone: [phone]
[2025-01-09] MEDS: DEXTROSE 5%-0.45% NS 1,000 ML 100 ML IV (00:30)
[2025-01-09 06:34] LABS: Alanine Aminotransferase 53 IU/L (<50); Albumin 3.5 g/dL (3.5-5.0); Albumin Globulin Ratio 1.5 (1.0-2.8); Alkaline Phosphatase 48 U/L (38-126); Blood Urea Nitrogen 20 mg/dL (9-20); Calcium 8.5 mg/dL (8.4-10.2); Carbon Dioxide 27 mmol/L (22-32); Chloride 102 mmol/L (98-107); Estimated Glomerular Filt Rate > 60 mL/min (>60); Globulin 2.3 g/dL (1.7-4.1); Glucose 119 mg/dL (70-99); HEMOLYSIS < 15 (0-50); Potassium 4.0 mmol/L (3.4-5.1); Sodium 134 mmol/L (137-145); Total Protein 5.8 g/dL (6.3-8.2)
[2025-01-09 06:36] LABS: Add Manual Diff / Slide Review NO; Hematocrit 24.1 % (41-53); Hemoglobin 8.0 g/dL (13.5-17.5); Lymphocytes Absolute Auto 2700 /uL (1100-4500); Mean Corpuscular HGB Conc 33.4 % (30-36); Mean Corpuscular Hemoglobin 27.3 PG (26-34); Mean Corpuscular Volume 81.9 fL (80-100); Platelet Count 221 X10^3/uL (150-400)
--- NOTE | 2025-01-09 07:27 | PM.PN.IH.1 ---
Subjective Subjective Date Patient Seen: 01/09/25 Time Patient Seen: 07:25 Interval history: Patient seen resting comfortably in bed states he has had no further black melanotic stools. Denies any abdominal pain. Patient is scheduled for EGD this a.m. procedure risks and complications were fully explained to patient again he understands and consents. Patient's vitals are stable his hemoglobin has dropped down to a hemoglobin of 8.0 hematocrit is 24.1 platelets are 221,000. We will hold on any transfusions at this time as he is healthy without any other coexisting medical problems. Discussed with patient the need to discourage the weight reduction medicines he is receiving online as this may have precipitated some of the bleeding. Patient was given a normal postoperative instructions and precautions and discuss ulcerogenic foods meds activities and diet. All questions were answered patient's satisfaction. Exam Vital Signs (past 8 hours): - 01/09/25 03:00 Temperature 98 F Respiratory Rate 20 Blood Pressure 100/53 L Pulse Oximetry 98 Oxygen Flow Rate 0 Oxygen Delivery Method Room Air Oxygen Flow Rate 0 Objective Labs 01/09/25 05:50 01/09/25 05:50 Labs: Laboratory Results - last 24 hr 01/08/25 01/08/25 01/08/25 10:23 11:20 11:35 WBC 17.1 H RBC 3.68 L Hgb 10.1 L Hct 29.8 L MCV 80.8 MCH 27.5 MCHC 34.0 RDW 14.2 Plt Count 281 Neut % (Auto) 77.2 H Lymph % (Auto) 15.7 L [place] % (Auto) 5.6 Eos % (Auto) 0.8 L Baso % (Auto) 0.7 Neut # (Auto) 07721 H Lymph # (Auto) 2700 [place] # (Auto) 1000 H Eos # (Auto) 100 Baso # (Auto) 100 PT 14.0 H INR 1.2 APTT 25 L Sodium 132 L 132 L Potassium 4.7 4.6 Chloride 102 103 Carbon Dioxide 22 22 BUN 35 H 33 H Creatinine 0.84 0.79 Estimated GFR > 60 > 60 BUN/Creatinine Ratio 41.7 H 41.8 H Glucose 129 H 120 H Lactate 1.1 Calcium 9.9 10.1 Total Bilirubin 0.3 0.3 AST 44 45 ALT 65 H 63 H Alkaline Phosphatase 64 61 Total Protein 6.7 6.7 Albumin 4.1 4.1 Globulin 2.6 2.6 Albumin/Globulin Ratio 1.6 1.6 Lipase 44 Procalcitonin 0.108 Ur Bilirubin Confirm Negative Blood Type O Positive Antibody Screen Negative 01/08/25 01/09/25 16:30 05:50 WBC 12.6 H RBC 2.94 L Hgb 9.2 L 8.0 L Hct 27.3 L 24.1 L MCV 81.9 MCH 27.3 MCHC 33.4 RDW 14.3 Plt Count 221 Neut % (Auto) 68.9 Lymph % (Auto) 21.8 L [place] % (Auto) 6.1 Eos % (Auto) 2.5 Baso % (Auto) 0.7 Neut # (Auto) 8700 H Lymph # (Auto) 2700 [place] # (Auto) 800 Eos # (Auto) 300 Baso # (Auto) 100 PT INR APTT Sodium 134 L Potassium 4.0 Chloride 102 Carbon Dioxide 27 BUN 20 Creatinine 0.83 Estimated GFR > 60 BUN/Creatinine Ratio 24.1 H Glucose 119 H Lactate Calcium 8.5 Total Bilirubin 0.3 AST 40 ALT 53 H Alkaline Phosphatase 48 Total Protein 5.8 L Albumin 3.5 Globulin 2.3 Albumin/Globulin Ratio 1.5 Lipase Procalcitonin Ur Bilirubin Confirm Blood Type Antibody Screen PFSH Medical History Sciatica Social History household members: significant other Smoking Status: Former smoker alcohol intake: former Assessment & Plan Time-Based Coding :: [TOTAL MINUTES] spent with patient and on the chart (including review of chart, obtaining history, exam, reviewing outside data, placing orders, documenting exam and treatment plan, and counseling patient) on [DATE]. PROFEE Medical Education Manager Document charge(s): Yes
--- NOTE | 2025-01-09 08:39 | PC.NURSE ---
Patient voided in urinal and SLIV for pickling machine operator by pre -op. Patient has been NPO. Denies complain at this time. Belongings left at bedside.
[2025-01-09] MEDS: LACTATED RINGERS 1,000 ML 42 ML IV (09:04)
--- NOTE | 2025-01-09 09:29 | PM.OP.EGD ---
Operative Date/Time/Diagnoses Date of procedure: 01/09/25 Time of procedure: 09:30
--- NOTE | 2025-01-09 09:33 | P.OP.EGD_ITS ---
Operative Date/Time/Diagnoses Date of procedure: 01/09/25 Time of procedure: 09:30 Pre-op diagnosis: Upper GI bleeding with acute blood loss anemia Post-op diagnosis: same Procedure & Clinicians Same procedure(s) as scheduled: Yes (Upper GI bleeding with black melanotic stools and acute blood loss anemia) Surgeon: Isidro Powers Anesthesia Type: MAC +/- Procedure Notes Procedure in detail: Patient was seen in consultation in the emergency room with black melanotic stools of 3 days' duration with acute blood loss anemia. Patient was admitted to the hospital was placed on maximal antiulcer therapy no need for transfusion. Consult with the hospitalist. Discussed the need for EGD with MAC procedure risks and complications were fully explained including risk for cardiopulmonary depression infection bleeding and bowel injury. Patient understood and consented all questions were answered to patient's satisfaction. Patient was NPO midnight. Patient was brought to endoscopy suite in the sitting supine position was given increments of IV sedation as per anesthesia after adequate analgesia oral bite block was carefully placed in great care to avoid any injury the oropharyngeal soft tissue. Time-out was performed patient procedure and surgeon all in the room were in agreement. The EGD scope was then lubricated with KY jelly advanced the oropharyngeal cavity vocal cords are noted to have good motion large amount of saliva was noted this suctioned clear scope was advanced to the esophagus normal anatomical landmarks were noted the scope was advanced to the GE junction was noted to be slightly irregular but no ulceration or bleeding was noted. Gastric lumen is insufflated no obvious source of bleedi ng scope was advanced through the pylorus and 3 duodenal ulcers were noted 2 small 1 medium size no active bleeding sphincter of Oddi was visualized the scope was advanced beyond this the limits of the scope no other findings were noted no signs of blood was noted in the esophagus. The scope was slowly withdrawn visualizing all areas biopsy was taken of the ulcer bed of the largest ulcer no bleeding was noted from the biopsy site this was submitted to pathology all areas were irrigated out no other findings were noted pylorus noted to have good motion no signs of channel ulcers or scarring. Antrum was noted to be clear biopsy was taken for H pylori and submitted to pathology in a separate container. Scope was retroflexed upon itself small hiatal hernia was noted no signs of gastritis or ulceration was noted in the stomach all insufflated air was aspirated the scope was moved back through the GE junction no other findings were noted the scope was slowly withdrawn back through the esophagus again normal anatomical landmarks oropharyngeal cavity was suctioned clear again vocal cords were visualized with good motion scope was removed as was bite block no injury to the oropharyngeal soft tissue or dentition. Patient tolerated procedure well without incident or complication patient was returned to recovery room in satisfactory condition. Will admit back to inpatient if doing well tolerating diet maybe discharge later this date. Discussed ulcerogenic foods meds activities diet patient will be discharged with Protonix and Carafate follow back up in the office or return if any problems questions or concerns.
[2025-01-09] MEDS: SUCRALFATE 1 GM TABLET PO (11:10)
[2025-01-09] MEDS: PANTOPRAZOLE 40 MG VIAL IV (11:10)
[2025-01-09] MEDS: MAG HYDROX/ALUM/SIMETH 30 ML UDC PO (11:10)
--- NOTE | 2025-01-09 12:36 | PM.DS.IH.1 ---
History of Present Illness History of Present Illness Date Patient Seen: 01/09/25 Time Patient Seen: 12:35 Date of Onset of Symptoms: 01/06/25 Chief complaint: Poss bleeding ulcer 2days; black stool;acid reflux Narrative: Patient is a 39-year-old english male who presents to the emergency room with black melanotic stools x3 days. Patient states this started on 01/06/2025 was having black stools on 8 08/2024 was having a shower when he became slightly vertiginous. No syncope admits to nausea but denies any vomiting he has had some bad reflux. Patient last ate a water prior to coming the ER and will have his drinking water here in the ER. Patient denies any abdominal pain. Patient states that he is taking as ins tobacco products ongoing marijuana but also is taking a new appetite reduction drug use gotten online which she has been taking for 7 days and taking Tums. Patient's admitting laboratory shows WBC of 17.1 hemoglobin is 10.1 hematocrit is 29.8 platelets are 281,000 sodium is 132 potassium is 4.6 chloride 103 bicarb is 22 BUN of 33 creatinine 0.79 random blood sugars 120 PT is 14.0 PTT is 25 total bilirubin 0.3 AST is 45 ALT is 63 alkaline phosphatase is [address] scan which shows no signs of bleeding with IV contrast no acute processes noted radiology report is still pending. I was asked to see the patient for evaluation of the upper GI bleeding. We will consult hospitalist. Allergies: NKDA Medications: Tums and a online weight reduction medication Past medical history: Obesity, history of fracture of left arm falling from a tree, fracture of his back secondary to fall from a tree. Patient denies any other heart lungs digestive musculoskeletal neurological seizure disorder psychiatric problems risks are infectious diseases HIV or AIDS. Past surgical history: Unremarkable no history of screening scopes Social history: History tobacco abuse 1 pack per day x4 years. Six months ago has been taking Xeljanz for 6 months zinns tobacco pouches, denies any alcohol usage, ongoing marijuana use region. Vitals: Pulse is 92 respirations 17 BP is 133/72 SaO2 is 98% on room air patient is 5 ft 9 350 lb Head is normocephalic eyes PERRLA EOMI is intact nares are clear septum midline EACs and pinnae are unremarkable oropharyngeal cavity is in moderate repair heart regular rate and rhythm without murmurs lungs are clear to auscultation no rales rhonchi or wheezes noted moderate inspiratory and expiratory effort moderate chest wall motion noted. Abdomen was obese with good active bowel sounds negative Nacho's Grubbs great turns Torres's McBurney's no masses or peritoneal signs were elicited musculoskeletal good muscle tone and strength equal bilaterally no gross deficits elicited. Impression: Black melanotic stools of 3 days' duration with acute blood loss anemia Hemoglobin 10.1 hematocrit is 29.8 Obesity Tobacco and marijuana usage Plan: Discussed with patient and mother the findings need for admission for management of upper GI bleeding and monitoring H&H. Discussed the need for EGD with MAC procedure risks and complications were fully explained including risk for cardiopulmonary depression infection bleeding bowel injury patient understands and consents we will NPO at midnight place on H2 blockers antacids and Carafate all questions were answered with the patient and mother's satisfaction. Discharge Providers Provider Date of admission: 01/08/25 12:42 Discharge Date: 01/09/25 Discharge provider: Isidro Powers DO Summary Hospital Course Discharge Diagnosis: Duodenal ulcers nonbleeding Hospital Course: Patient's hospital course was uneventful had no further melanotic stools no abdominal pain tolerated EGD well Status at Discharge Cognitive/behavioral status at discharge: oriented (Patient is discharged in improved condition) Functional status at discharge: independent ambulation Overall status at discharge: patient is back to baseline Time Spent with Patient Time spent: Greater than 30 minutes Time spent discussing smoking cessation with patient: more than 10 minutes Exam Vital Signs (past 8 hours): - 01/09/25 07:00 01/09/25 08:52 01/09/25 09:34 Temperature 97.5 F L 97.8 F 99.3 F Pulse Rate 81 85 89 Respiratory Rate 16 16 25 H Blood Pressure 122/64 128/79 115/62 Pulse Oximetry 100 98 96 Oxygen Delivery Method Room Air Room Air Oxygen Flow Rate 0 01/09/25 09:35 01/09/25 09:40 01/09/25 09:47 Temperature Pulse Rate 85 79 80 Respiratory Rate 22 13 15 Blood Pressure 117/57 L 117/59 L 121/65 Pulse Oximetry 97 97 98 Oxygen Delivery Method Room Air Room Air Room Air Oxygen Flow Rate 01/09/25 10:09 Temperature 97.4 F L Pulse Rate 76 Respiratory Rate Blood Pressure 116/58 L Pulse Oximetry 99 Oxygen Delivery Method Oxygen Flow Rate 0 Oxygen Delivery Method Room Air Oxygen Flow Rate 0 Narrative Exam Narrative: Heart regular rate and rhythm without murmurs lungs are clear to auscultation abdomen is soft nondistended no masses or peritoneal signs. Const General: cooperative and comfortable Nutritional Appearance: overweight Orientation: alert and oriented x3 [facility] Head: normocephalic Ears: hearing grossly normal bilaterally Nose: nares normal Face and sinus: normal facial exam Mouth: oral mucosae normal Teeth and gingiva: dentition normal Eyes General: appearance normal, both eyes and all related structures Visual Rojo: normal visual rojo by confrontation Alignment and Position: alignment normal Periorbital: periorbital findings normal Eyelids: eyelids normal Conjunctivae: conjunctivae normal Sclera: sclerae normal Cornea: corneas normal Pupils: PERRL EOM: EOM intact bilaterally Neck Neck: normal visual inspection Chest Chest: normal inspection of the chest Resp Effort & Inspection: normal respiratory effort Auscultation: clear to auscultation bilaterally Percussion: percussion normal GI Inspection: normal to inspection Palpation: soft and no hepatosplenomegaly Auscultation: normal bowel sounds Back/Spine/Pelvis Back: normal to inspection, back tenderness, crepitance, CVA tenderness, ecchymosis, erythema, Priest-Hutchinson sign present, mass, sacral edema, warmth and other Cervical Spine: normal cervical lordosis, cervical ROM normal, collar present, Lhermitte's sign positive, loss of normal cervical lordosis, cervical muscular tenderness, pain with cervical ROM, scars present, cervical spasm, cervical spinal tenderness, step off deformity, cervical ROM abnormal and other Thoracic/Lumbar Spine: thoracic and lumbar spine normal to inspection, surgical scar(s) present, thoraco-lumbar ROM normal, Lasegue's sign negative, straight leg raise negative bilaterally, bend over test abnormal, kyphosis, Lasegue's sign positive, mass, pain with thoraco-lumbar ROM, paraspinal tenderness, thoraco-lumbar ROM limited, scoliosis, thoraco-lumbar spasm, thoracic spinal tenderness, lumbar spinal tenderness, straight leg raise positive, tilt present and other Skin General: no rashes or lesions noted Lesions: no lesions Rashes: no rashes Wounds: no wounds Hair: normal Neuro General: patient alert, patient awake, patient oriented x3, oriented, gait normal, tone normal, moves all extremities, normal light touch, pain and propioception, no meningeal signs, no focal motor deficits, CN's II-XI intact bilaterally, normal sensation to monofilament, decrease sensation to monofilament, absent sensation to monofilament, deep tendon reflexes 2+ bilaterally, patient confused, patient obtunded, unable to assess gait, Ravia Hallpike and other Cranial Nerves: CN's II-XI intact bilaterally Motor: muscle tone normal throughout Extrem General: normal to inspection Psych Appearance: well kempt Objective Labs 01/09/25 05:50 01/09/25 05:50 Labs: Laboratory Results - last 24 hr 01/08/25 01/08/25 01/09/25 11:35 16:30 05:50 WBC 12.6 H RBC 2.94 L Hgb 9.2 L 8.0 L Hct 27.3 L 24.1 L MCV 81.9 MCH 27.3 MCHC 33.4 RDW 14.3 Plt Count 221 Neut % (Auto) 68.9 Lymph % (Auto) 21.8 L Davie % (Auto) 6.1 Eos % (Auto) 2.5 Baso % (Auto) 0.7 Neut # (Auto) 8700 H Lymph # (Auto) 2700 Davie # (Auto) 800 Eos # (Auto) 300 Baso # (Auto) 100 Sodium 134 L Potassium 4.0 Chloride 102 Carbon Dioxide 27 BUN 20 Creatinine 0.83 Estimated GFR > 60 BUN/Creatinine Ratio 24.1 H Glucose 119 H Calcium 8.5 Total Bilirubin 0.3 AST 40 ALT 53 H Alkaline Phosphatase 48 Total Protein 5.8 L Albumin 3.5 Globulin 2.3 Albumin/Globulin Ratio 1.5 Procalcitonin 0.108 [facility] Medical History Sciatica Social History household members: significant other Smoking Status: Former smoker alcohol intake: former Discharge Assessment & Plan Assessment and Plan Assessment: Patient has no recurrent bleeding is discharged in satisfactory condition Plan of Treatment: Patient was discussed diet and ulcerogenic foods meds activities diet discussed Protonix antacids and Carafate Discharge Plan Discharge Plan Patient Disposition: Home Provider Discharge Comment: Patient is status post EGD for melena and acute blood loss anemia patient was noted to have nonbleeding duodenal ulcers Discharge orders & Medications Prescriptions: New pantoprazole [Protonix] 40 mg tablet,delayed release (DR/EC) 40 mg PO DAILY Qty: 60 2RF sucralfate [Carafate] 1 gram tablet 1 g PO QACHS Qty: 30 0RF Diet/Activity/Treatments Diet: Diet as Tolerated Diet comment: Avoid acidic products caffeine carbonated beverages and tobacco products Other treatments: Prescriptions for Protonix and Carafate sent to pharmacy Visit Report/Discharge Packet Instructions: DI for Gastroesophageal Reflux Disease (GERD), DI for Gastric Ulcer Stand Alone Forms: Patient Portal/API, Stroke Signs & Symptoms Discharge Data Attending Provider: Bret Baron V Admit Date/Time: 01/08/25 12:42 PROFEE Charge Codes Discharge inpatient/observation: [id number]
--- NOTE | 2025-01-09 13:37 | CM.DANOTE ---
Patient is a 39 yo male who was admitted OBS Status on 01/08/25 for Possible GI bleed. Patient has for insurance and his PCP is not listed. EMR was reviewed. Per Surgeon, pt [place] with obesity and started taking an online weight loss medication recently and admitted for scope to r/o current bleed. Pt taken to OR for EGD and determined nonbleeding duodenal ulcers and medically stable to d/c home today and no identified barriers to discharge. Pt resides in [place] with his family and is independent at baseline and has transport home. No discharge needs identified. Due to triage needs and no dc needs currently, no bedside assessment completed today. GUILLE Tee
== END 2025-01-09 14:32 | disposition home or self-care (01) ==
LOC: ED 11:40 → AC 12:42
PROVIDERS: Family Medicine; Surgery; Admitting Provider Internal Medicine; Emergency Provider Physician Assistant; Referring Provider Physician Assistant; Visit Provider Internal Medicine
PROC: 0DJ08ZZ Inspection of Upper Intestinal Tract, Via Natural or Artificial Opening Endoscopic (ICD-10-PCS; CPT 43239; principal; 2025-01-09 11:30)
DX: K92.1 Melena (principal); K21.9 Gastro-esophageal reflux disease without esophagitis; Z87.891 Personal history of nicotine dependence; D62 Acute posthemorrhagic anemia; K26.9 Duodenal ulcer, unspecified as acute or chronic, without hemorrhage or perforation; K44.9 Diaphragmatic hernia without obstruction or gangrene
CPT/HCPCS: 43239; 36415; 71045; 74174; 80053; 81003; 82272; 83605; 83690; 84145; 85014; 85018; 85025; 85610; 85730; 86850; 86900; 86901; 87040; 96361; 96374; 96375; 96376; 99284; G0378; J2405; J2470; J2704; Q9967